=== PATIENT | female | born 1950 | race Native Hawaiian/Other Pacific Islander ===

== ENCOUNTER 2016-06-19 06:35 | Day surgery (SDC) | payer OTHER ==
[2016-06-12 09:50] VITALS: BMI 34.2
[2016-06-19] MEDS ORDERED: Propofol 10 mg/ml Inj (20 ML) ONE (07:50)
[2016-06-19] MEDS ORDERED: Midazolam 2 MG/2 ML VIAL ONE (07:50)
--- NOTE | 2016-06-19 08:22 | CP.SDSHP ---
Same Day Surgery H & P - History Proposed Procedure: EGD Pre-Op Diagnosis: Dyspepsia, GERD - Previous Medical/Surgical History Cardiac: Hypertension, Valvular Heart Disease Pulmonary: Other Comments: Sleep apnea, hyperlipidemia, endometrial cancer Previous Surgical History: Hysterectomy, knee replacement, cholecystectomy - Allergies Allergies: Allergies No Known Allergies Allergy (Verified 06/19/16 06:59) - Current Medications Current Medications: See reconciliation sheet - Physical Exam General Appearance: WD WN female in NAD Vital Signs: Vital Signs 06/19/16 07:14 Temperature 98.7 F Pulse Rate 82 Respiratory 16 Rate Blood Pressure 108/74 O2 Sat by Pulse 98 Oximetry Mental Status: Alert & Oriented x3 Neuro: WNL Heart: WNL Lungs: WNL GI: WNL - {Optional Preform as Required} Abdomen: WNL - Impression Impression: Dyspepsia, GERD Pt. Evaluated Today:Candidate for Anesthesia & Procedure: Yes - Date & Time Date: 06/19/16 Time: 08:19 Short Stay Discharge - Short Stay Discharge Admitting Diagnosis/Reason for Visit: GASTRO-ESOPHAGEAL REFLUX DISEASE Disposition: HOME/ ROUTINE
[2016-06-19 09:00] VITALS: TEMP 97.3
[2016-06-19 09:21] VITALS: O2SAT 100
[2016-06-19 10:12] VITALS: BP 113/69; PULSE 70; RESP 14
== END 2016-06-19 10:12 | disposition home or self-care (01) ==
LOC: C.ENDO 06:35
PROVIDERS: ATTEND Internal Medicine Gastroenterology
DX: K29.00 Acute gastritis without bleeding (principal); K22.70 Barrett's esophagus without dysplasia; D13.0 Benign neoplasm of esophagus; K44.9 Diaphragmatic hernia without obstruction or gangrene; K29.50 Unspecified chronic gastritis without bleeding
CPT/HCPCS: 43239; 88305; J2250; J2704

== ENCOUNTER 2016-10-17 07:44 | Day surgery (SDC) | payer MEDICARE, OTHER ==
[2016-06-12 09:50] VITALS: BMI 34.2
[~2016-10-17 07:44] MED LIST: EPINEPHrine 1:1000 Nasal Sol(30mL) ONE; Lidocaine 2% w Epi 1:100,000 Inj IJ ONE; ceFAZolin IV 1 gm in Dextrose 0 GM/0 ML BAG IVPB ONE
[2016-10-17] MEDS ORDERED: Acetaminophen-Codeine 300/30 mg Tab PO PRN (08:30)
[2016-10-17] MEDS ORDERED: Dextrose 5%/0.45% NS 1,000 ML IV SCH (08:30)
[2016-10-17] MEDS ORDERED: Propofol 10 mg/ml Inj (20 ML) ONE (10:36)
[2016-10-17] MEDS ORDERED: Succinylcholine Chloride 20 mg/ml Syr (5 ml) IV ONE (10:36)
[2016-10-17] MEDS ORDERED: Midazolam 2 MG/2 ML VIAL ONE (10:36)
[2016-10-17] MEDS ORDERED: ceFAZolin IV 1 gm in Dextrose 1 GM/50 ML BAG IVPB ONE (10:38)
[2016-10-17] MEDS ORDERED: Lactated Ringer's 1,000 ML IV ONE ×2 (10:40→12:10)
[2016-10-17] MEDS ORDERED: Metoprolol 1 mg/ml Inj IVP ONE (11:15)
[2016-10-17] MEDS ORDERED: Lidocaine Hydrochloride 5 ML INJ ONE (11:17)
[2016-10-17] MEDS ORDERED: HYDROmorphone 0.5 mg/0.5 ml ISec IVP PRN (12:39)
[2016-10-17] MEDS ORDERED: Lactated Ringer's 1,000 ML IV SCH (12:45)
[2016-10-17 14:55] VITALS: BP 133/85; PULSE 89; RESP 20; TEMP 97.8; O2SAT 97
--- NOTE | 2016-10-17 21:59 | OP ---
PROCEDURE DATE: 10/17/2016 PREOPERATIVE DIAGNOSIS: Deviated septum, enlarged turbinates, chronic sinusitis. POSTOPERATIVE DIAGNOSIS: Deviated septum, enlarged turbinates, chronic sinusitis. PROCEDURE: Septoplasty, bilateral endoscopic inferior turbinate reduction, bilateral endoscopic maxillary antrostomy, bilateral endoscopic ethmoidectomy and bilateral endoscopic sphenoidotomy. DESCRIPTION OF PROCEDURE: The patient was brought into the room and placed in the supine position. Anesthesia was initiated through an ET tube. Adrenaline-soaked pledgets were inserted into the nasal cavity. They were remained there for at least 5 minutes and removed. Navigation was set up and used throughout the case to ensure that the skull and orbit were not entered. The patient was draped in the usual manner. A [place]'s incision was made on the anterior septum on the left and a mucoperichondrial flap was raised. A vertical incision was made in the cartilage leaving a 1.5 cm anterior and superior strut and a mucoperichondrial flap was raised on the other side. Deviated portion of the bone and cartilage was removed. A quilting suture was used to suture the two flaps together and close the Tre's incision. A 0-degree scope was inserted into the nasal cavity. The inferior turbinates were noted to be enlarged and were reduced using scissors on both sides, first on the left, then on the right going from an inferior to superior and anterior to posterior direction on both side. Bleeding was controlled using suction cautery. Attention was turned to the left, the middle turbinate was medialized. The uncinate process was medialized and removed. The ethmoid bulla was entered using a debrider inferomedially going posteriorly to the basal lamella then anteriorly and superiorly until the ethmoid bulla was removed. The basal lamella was entered. The posterior ethmoid cells were entered and opened. The skull base was identified and followed anteriorly all the way to the area of the anterior ethmoid air cells. The suction hooked up to navigation was used to locate the sphenoid antrum, which was noted to be stenosed and opened using forceps and the maxillary antrum was located using a suction hooked up to navigation. The maxillary antrum was noted to be stenosed and opened using forceps. Attention was turned to the other side. The middle turbinate was medialized. The uncinate process was medialized and removed. The ethmoid bulla was entered inferomedially going posteriorly to the basal lamella then anteriorly and superiorly until the ethmoid bulla was removed. The basal lamella was entered. The posterior ethmoid cells were entered and opened. The skull base was identified and followed anteriorly all the way to the area of the anterior ethmoid air cells. The sphenoid antrum was noted to be stenosed. It was located using suction hooked up to navigation and opened using forceps. The maxillary antrum was noted to be stenosed. It was located using suction hooked up to navigation and opened using forceps. Bleeding was controlled using adrenaline-soaked pledgets and FloSeal packs were placed. The patient was taken off the anesthesia and taken to recovery room in stable manner. Jaime Sanches MD [facility]
== END 2016-10-17 14:00 | disposition home or self-care (01) ==
LOC: C.SDS 07:44
PROVIDERS: ATTEND Otolaryngology
DX: J34.2 Deviated nasal septum (principal); J34.3 Hypertrophy of nasal turbinates; J32.0 Chronic maxillary sinusitis; J32.9 Chronic sinusitis, unspecified
CPT/HCPCS: 30630; 30802; 31255; 31256; 31288; 88304; J0690; J1170; J2250; J2405; J2704; J2765; J3010; J7120

== ENCOUNTER 2018-04-26 07:31 | Outpatient (CLI) | payer BC | END 2018-04-26 07:32 | disposition home or self-care (01) | LOC: C.LAB 07:31 ==

== ENCOUNTER → 2018-05-17 | Outpatient (CLI) | payer BC | LOC: C.CARD 07:03 ==

== ENCOUNTER 2018-06-14 09:36 | Outpatient (CLI) | payer BC | END 2018-06-14 09:37 | disposition home or self-care (01) | LOC: C.MAMMO 09:36 | DX: Z12.31 Encounter for screening mammogram for malignant neoplasm of breast (principal) ==

== ENCOUNTER 2018-06-14 10:32 | Outpatient (CLI) | payer BC | END 2018-06-14 10:33 | disposition home or self-care (01) | LOC: C.LAB 10:32 | DX: K44.9 Diaphragmatic hernia without obstruction or gangrene (principal) ==

== ENCOUNTER 2018-06-19 13:21 | Outpatient (CLI) | payer BC | END 2018-06-19 13:22 | disposition home or self-care (01) | LOC: C.USIC 13:21 ==

== ENCOUNTER 2018-06-21 07:17 | Outpatient (CLI) | payer BC | END 2018-06-21 07:18 | disposition home or self-care (01) | LOC: C.CARD 07:17 ==

== ENCOUNTER 2018-07-19 07:38 | Day surgery (SDC) | payer BC ==
[2018-07-18 14:37] VITALS: BMI 35.2
[2018-07-19] MEDS ORDERED: Lidocaine 4% (Laryng-O-Jet) Kit MM ONE (07:56)
[2018-07-19 08:25] LABS: HEMOGLOBIN 13.6 g/dL (11.0-16.0); MEAN CELL VOLUME 90.2 fL (81.0-99.0); MEAN CORPUSCULAR HEMOGLOBIN 31.3 pg (27.0-31.0); MEAN CORPUSCULAR HGB CONC 34.7 g/dL (33.0-37.0); MEAN PLATELET VOLUME 8.8 fL (7.2-11.7); RBC 4.35 Mil/uL (3.80-5.20); WHITE BLOOD COUNT 5.2 K/uL (4.8-10.8)
[2018-07-19 08:34] LABS: PARTIAL THROMBOPLASTIN TIME 36.9 SECONDS (21-34); PROTHROMBIN TIME 10.7 SECONDS (9.7-12.2)
[2018-07-19 08:52] LABS: BLOOD UREA NITROGEN 19 mg/dL (7-17); CALCIUM 9.6 mg/dl (8.6-10.4); GFR NON-AFRICAN AMERICAN > 60
[2018-07-19] MEDS ORDERED: Midazolam 2 MG/2 ML VIAL ONE (09:12)
[2018-07-19] MEDS ORDERED: Propofol 10 mg/ml Inj (20 ML) ONE (09:13)
== END 2018-07-19 12:30 | disposition home or self-care (01) ==
LOC: C.CATHLAB 07:38
PROVIDERS: ATTEND Internal Medicine Cardiovascular Disease
DX: R06.02 Shortness of breath (principal); I10 Essential (primary) hypertension
CPT/HCPCS: 36415; 80048; 85027; 85610; 85730; 93312; J2001; J2250; J2704; J3010